=== PATIENT | female | born 1980 | race African-American/Black ===

== ENCOUNTER 2020-09-21 19:42 | Emergency (ER) | payer SELFPAY ==
[~2020-09-21] VITALS: Ht 172.7 cm; Wt 72.7 kg
[2020-09-21 20:20] VITALS: BP 172/108
== END 2020-09-21 21:33 | disposition home or self-care (01) | DRG 563 ==
LOC: ED 19:42
DX: S93.401A Sprain of unspecified ligament of right ankle, initial encounter (principal); I10 Essential (primary) hypertension; F17.210 Nicotine dependence, cigarettes, uncomplicated; V18.0XXA Pedal cycle driver injured in noncollision transport accident in nontraffic accident, initial encounter; Y93.55 Activity, bike riding; Y92.410 Unspecified street and highway as the place of occurrence of the external cause